=== PATIENT | female | born 1960 | race Caucasian/White ===

== ENCOUNTER 2018-12-19 19:23 | Inpatient (IN) | payer OTHER ==
[~2018-12-19] VITALS: Ht 167.6 cm; Wt 94.0 kg
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
[2018-12-19] MEDS ORDERED: ONDANSETRON 4 MG/2 ML VIAL IVP ONE (19:45)
[2018-12-19] MEDS ORDERED: DIPHTH/TETANUS/ACEL. PERTUSSIS IM ONLY ONE (19:45)
[2018-12-19] MEDS ORDERED: MORPHINE 4 MG/ML SDV IVP ONE (19:45)
[2018-12-19] MEDS ORDERED: NS(*) 0.9% 1000 ML BAG 1,000 ML IV ONE ×2 (19:45→23:35)
[2018-12-19 20:06] LABS: PLATELET COUNT, AUTOMATED 219 K/uL (150-450)
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
[2018-12-19] MEDS ORDERED: IOPAMIDOL 76% 100 ML INFUS BTL 100 ML ONE (20:26)
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
[2018-12-19 21:26] LABS: INR 0.9
[2018-12-19] MEDS ORDERED: ceFAZolin(*) 1 GM VIAL 1 GM in NS(*) 0.9% 100 ML MINI-BAG 100 ML IV ONE (21:55)
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
[2018-12-19] MEDS ORDERED: MORPHINE 2 MG/ML SYR IVP PRN (23:35)
[2018-12-19] MEDS ORDERED: ONDANSETRON 4 MG/2 ML VIAL IVP PRN (23:35)
[2018-12-20] VITALS (7 sets, daily range): BP systolic 124–152; BP diastolic 67–82
[2018-12-20] MEDS ORDERED: PANT40TA65 PO (00:36)
[2018-12-20] MEDS ORDERED: BUPR-147 PO (00:36)
[2018-12-20] MEDS ORDERED: MELO-207 PO (00:36)
[2018-12-20] MEDS ORDERED: ESCI10TA8 PO (00:36)
[2018-12-20] MEDS: APAP/HYDROCODONE 325/5 TAB PO PRN ×3 (08:54→20:13)
[2018-12-20] MEDS ORDERED: KCL/D1/2NS 20 MEQ 1000 ML 1,000 ML IV PRN (10:00)
[2018-12-20] MEDS ORDERED: BACITRACIN OINT 0.9 GM PKT TP PRN (10:00)
[2018-12-20] MEDS ORDERED: PANTOPRAZOLE SOD 40 MG IV VIAL IVP ONE (10:40)
[2018-12-20] MEDS: BACITRACIN OINT 0.9 GM PKT TP SCH ×2 (11:02→20:10)
[2018-12-20] MEDS: NS(*) 0.9% 1000 ML BAG 1,000 ML IV PRN ×2 (11:03→20:09)
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
--- NOTE | 2018-12-20 17:27 | General Surgery Progress Note ---
Subjective Progress Notes Subjective Generally stable. Swelling persists Some concussive symptoms On IV antibiotics Continue. Will advance diet tomorrow Physical Exam Vital Signs Date Time Temp Pulse Resp B/P (MAP) Pulse Ox O2 Delivery O2 Flow Rate FiO2 12/20/18 16:24 99.3 73 16 139/71 (93) 89 Room Air 12/20/18 08:20 0.5 Intake and Output 12/20/18 07:02 Intake Total 1100 ml Balance 1100 ml IV Total 1100 ml Result Diagram: 12/19/18193112/19/181931 Exam Sepsis Risk: No Definite Risk TATI LUCAS MD Dec 20, 2018 17:27
[2018-12-20] MEDS: AMPICILLIN/SULBACT (*) 3 GM VL 3 GM in NS(*) 0.9% 100 ML MINI-BAG 100 ML IVPB SCH ×2 (17:38→23:29)
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
[2018-12-21] VITALS (8 sets, daily range): BP systolic 106–180; BP diastolic 75–95
[2018-12-21] MEDS: APAP/HYDROCODONE 325/5 TAB PO PRN ×5 (00:11→21:58)
[2018-12-21] MEDS: NS(*) 0.9% 1000 ML BAG 1,000 ML IV PRN (05:28)
[2018-12-21] MEDS: AMPICILLIN/SULBACT (*) 3 GM VL 3 GM in NS(*) 0.9% 100 ML MINI-BAG 100 ML IVPB SCH ×4 (05:28→23:30)
[2018-12-21 06:02] LABS: PLATELET COUNT, AUTOMATED 161 K/uL (150-450)
[2018-12-21 06:23] LABS: INR 1.02
--- NOTE | 2018-12-21 06:50 | General Surgery Progress Note ---
Subjective Progress Notes Subjective afebrile, vss, voiding, apetite sl better, some discomfort, tolerating clears on IV antibiotics Somewhat more swelling and ecchymosis, no diplopia, increased subconjunctival hemorrhage, vision OK, abrasions fair Remainder exam OK Labs reviewed ENT consult with fibreoptic laryngoscopy done---peritonsillar cyst, and MNG. Will need later thyroid US and FNA Plan--ambulate, advance diet, continue antibiotics, pulm toilet, not ready as yet for DC (driving 18 hours to [place].) Physical Exam Vital Signs Date Time Temp Pulse Resp B/P (MAP) Pulse Ox O2 Delivery O2 Flow Rate FiO2 12/21/18 02:38 98.7 71 16 140/78 (98) 92 Room Air 12/20/18 19:45 0.5 Intake and Output 12/21/18 07:02 Intake Total 3876 ml Output Total 1600 ml Balance 2276 ml Intake Oral 1620 ml IV Total 2256 ml Output Urine Total 1600 ml # Voids 2 Result Diagram: 12/21/1852012/21/18520 Exam Sepsis Risk: No Definite Risk TATI LUCAS MD Dec 21, 2018 06:50
[2018-12-21] MEDS: KCL/D1/2NS 20 MEQ 1000 ML 1,000 ML IV PRN ×2 (07:03→21:24)
[2018-12-21] MEDS: PANTOPRAZOLE SOD 40 MG IV VIAL IVP SCH (09:12)
[2018-12-21] MEDS: BACITRACIN OINT 0.9 GM PKT TP SCH ×2 (09:13→21:05)
--- NOTE | 2018-12-21 15:33 | General Surgery Progress Note ---
Subjective Progress Notes Subjective Generally stable. Apetite fair. Discomfort persists. Swelling increased. Ecchymosis spreading. On IV antibiotics Continue Physical Exam Vital Signs Date Time Temp Pulse Resp B/P (MAP) Pulse Ox O2 Delivery O2 Flow Rate FiO2 12/21/18 11:57 98.7 64 14 164/84 (110) 96 Nasal Cannula 1.0 Intake and Output 12/21/18 07:02 Intake Total 4336 ml Output Total 1600 ml Balance 2736 ml Intake Oral 1980 ml IV Total 2356 ml Output Urine Total 1600 ml # Voids 2 Result Diagram: 12/21/1852012/21/18520 Exam Sepsis Risk: No Definite Risk TATI LUCAS MD Dec 21, 2018 15:33
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
[2018-12-22 03:12] VITALS: BP 146/80
[2018-12-22 03:18] VITALS: BP 161/75
[2018-12-22] MEDS: APAP/HYDROCODONE 325/5 TAB PO PRN ×2 (05:18→10:19)
[2018-12-22] MEDS: AMPICILLIN/SULBACT (*) 3 GM VL 3 GM in NS(*) 0.9% 100 ML MINI-BAG 100 ML IVPB SCH (05:20)
[2018-12-22 06:03] LABS: PLATELET COUNT, AUTOMATED 178 K/uL (150-450)
--- NOTE | 2018-12-22 06:44 | General Surgery Progress Note ---
Subjective Progress Notes Subjective afebrile, vss, voiding, eating, minimal pain exam improved labs noted Plan-DC IV and antibiotics. Home today. To see MD's in [place] re: face and thyroid. Physical Exam Vital Signs Date Time Temp Pulse Resp B/P (MAP) Pulse Ox O2 Delivery O2 Flow Rate FiO2 12/22/18 03:18 98.5 66 16 161/75 (103) Room Air 95.0 12/22/18 03:12 95 Intake and Output 12/22/18 07:02 Intake Total 2200 ml Output Total 1900 ml Balance 300 ml Intake Oral 1020 ml IV Total 1180 ml Output Urine Total 1900 ml # Voids 7 # Bowel Movements 1 Result Diagram: 12/22/18 0514 12/22/18 0514 Exam Sepsis Risk: No Definite Risk TATI LUCAS MD Dec 22, 2018 06:44
[2018-12-22 06:45] VITALS: BP 162/95
--- NOTE | 2018-12-22 06:51 | Short(Outpt) Discharge Summary ---
Discharge Summary Discharge Instructions Home Meds Reported Medications Pantoprazole Sodium (PANTOPRAZOLE SODIUM) 40 Mg Tablet.dr, 20 MG PO QDAY, TAB.SR 12/20/18 Escitalopram Oxalate (ESCITALOPRAM OXALATE) 10 Mg Tablet, 20 MG PO QDAY, TAB 12/20/18 Bupropion Hcl (BUPROPION HCL) 75 Mg Tablet, 450 MG PO QDAY, TAB 12/20/18 Meloxicam (MELOXICAM) 15 Mg Tablet, 15 MG PO QDAY 12/20/18 Special Instructions: see discharge summary. May take home meds. RX given for Mauri #10. To see MD's at home in [place] for 1. face fx 2. thyroid. May not drive for 1 week. May not work for 2 weeks. Diet--general. TATI LUCAS MD Dec 22, 2018 06:51
[2018-12-22] MEDS: PANTOPRAZOLE SOD 40 MG IV VIAL IVP SCH (08:50)
[2018-12-22] MEDS ORDERED: HYDR-653 PO (08:57)
[2018-12-22] MEDS: BACITRACIN OINT 0.9 GM PKT TP SCH (10:15)
[2018-12-22 11:03] VITALS: BP 169/91
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
== END 2018-12-22 12:45 | disposition home or self-care (01) | DRG 158 ==
LOC: ER 19:42 → MED 12-20
PROVIDERS: ADMIT Surgery; ATTEND Surgery
DX: S02.40FA Zygomatic fracture, left side, initial encounter for closed fracture (principal); S02.32XA Fracture of orbital floor, left side, initial encounter for closed fracture; S02.40DA Maxillary fracture, left side, initial encounter for closed fracture; S70.02XA Contusion of left hip, initial encounter; E04.1 Nontoxic single thyroid nodule; I10 Essential (primary) hypertension; F32.9 Major depressive disorder, single episode, unspecified; R40.2412 Glasgow coma scale score 13-15, at arrival to emergency department; V86.59XA Driver of other special all-terrain or other off-road motor vehicle injured in nontraffic accident, initial encounter; Z87.891 Personal history of nicotine dependence; Z98.84 Bariatric surgery status; Z90.710 Acquired absence of both cervix and uterus; V86.55XA Driver of 3- or 4- wheeled all-terrain vehicle (ATV) injured in nontraffic accident, initial encounter; Y93.89 Activity, other specified; Y99.8 Other external cause status; Z23 Encounter for immunization
CPT/HCPCS: 36415; 70450; 70486; 71045; 71260; 72125; 72170; 74177; 81001; 82040; 82247; 82310; 82374; 82435; 82565; 82947; 83605; 84075; 84132; 84155; 84295; 84450; 84460; 84520; 85025; 85610; 85730; 86850; 86900; 86901; 90471; 90715; 96361; 96365; 96375; 99285; C9113; C9399; J0295; J0690; J2270; J2405; J3480; J7030; L0172; Q9967